=== PATIENT | male | born 1965 | race Caucasian/White ===

== ENCOUNTER 2020-01-05 13:20 | Day surgery (SDC) | payer OTHER, SELFPAY ==
[2020-01-05 13:59] VITALS: BP 163/95; PULSE 74; RESP 16; TEMP 36.2; O2SAT 97; BMI 34.0
[2020-01-05] MEDS: SODIUM CHLORIDE 0.9% 1,000 ML 200 ML IV (14:03)
--- NOTE | 2020-01-05 14:56 | PM.HP.1 ---
History of Present Illness History of Present Illness Chief complaint: [id number] Patient History Family & Social History Social History: household members spouse Tobacco & Substance use: Smoking Status Never smoker alcohol intake current alcohol intake frequency a few times a week Substance Use Type does not use Meds Home Medications and Allergies Home Medications Medication Instructions Recorded Confirmed Type acetaminophen-codeine 1 tab PO Q4-6H PRN 01/05/20 01/05/20 History [Tylenol-Codeine #3] aspirin 81 mg PO DAILY 01/05/20 01/05/20 History fluticasone propion-salmeterol 1 inh INHALATION BID 01/05/20 01/05/20 History [Advair Diskus] gabapentin [Neurontin] 100 mg PO DAILY 01/05/20 01/05/20 History metoprolol tartrate 25 mg PO DAILY 01/05/20 01/05/20 History simvastatin 5 mg PO BEDTIME 01/05/20 01/05/20 History triamterene-hydrochlorothiazid 1 tab PO DAILY 01/05/20 01/05/20 History Allergies Allergy/AdvReac Type Severity Reaction Status Date / Time lidocaine AdvReac Verified 01/05/20 13:54 Review of Systems Review of Systems ROS: Yes All systems reviewed with the patient and are negative except as otherwise documented Exam Vital Signs (past 8 hours): - 01/05/20 13:59 Temperature 97.1 F L Pulse Rate 74 Respiratory Rate 16 Blood Pressure 163/95 H Pulse Oximetry 97 Oxygen Delivery Method Room Air Narrative Exam Narrative: Awake alert and oriented x3, pupils equal round reactive to light, oropharynx clear, lungs clear to auscultation bilaterally, heart regular rate and rhythm, abdomen nondistended, no lower extremity edema Assessment & Plan Assessment & Plan narrative: Colon cancer screening for colonoscopy
--- NOTE | 2020-01-05 14:57 | PM.OP.ENDO ---
Operative Date/Time/Diagnoses Date of procedure: 01/05/20 Procedure & Clinicians Study performed: Colonoscopy Monitored anesthesia care was administered by an anesthesiologist. The following parameters were monitored: Oxygen saturation, heart rate, blood pressure, and response to care. Indications: Colon cancer screening. Last colonoscopy was done 8-10 years ago Procedure Notes Procedure in detail: Prior to the procedure, history and physical was performed, and patient medications and allergies were reviewed. Preprocedure nursing history and assessment was reviewed. Patient identification and proposed procedure were verified by the physician and nurse in the procedure room. The physical status of the patient was reassessed after the procedure. After informed consent was obtained including risks, benefits, and alternatives, the scope was passed under direct vision. Throughout the procedure, the patient's blood pressure, pulse, and oxygen saturations were monitored continuously. The colonoscope was introduced through the anus and advanced to the cecum as identified by the appendiceal orifice and ileocecal valve. The patient tolerated the procedure well. Bowel prep was deemed adequate to detect polyps greater than 5 mm. Perianal examination notable for external hemorrhoids. Digital rectal examination unremarkable. Retroflexion in the rectum revealed large grade 2 internal hemorrhoids. Scattered medium mouthed diverticula noted in the sigmoid colon. There was significant looping in the sigmoid colon. The examination was otherwise unremarkable Impression: Internal and external hemorrhoids Sigmoid colon diverticulosis No specimens taken Complications: other (No EBL. No complications) Post-procedure Plan for aftercare: Repeat colonoscopy in 10 years for screening purposes Resume home medications High fiber diet Patient has a contact number available for emergencies. The signs and symptoms of potential delayed complications were discussed with the patient. Return to normal activities tomorrow. Written discharge instructions were provided to the patient. Discharge home with escort
[2020-01-05 15:01] VITALS: BP 139/83; PULSE 82; RESP 16; TEMP 36.6; O2SAT 94
[2020-01-05 15:06] VITALS: BP 139/84; PULSE 80; RESP 11; O2SAT 97
[2020-01-05 15:11] VITALS: BP 138/90; PULSE 68; RESP 17; O2SAT 98
[2020-01-05 15:29] VITALS: BP 147/89; PULSE 66; RESP 11; TEMP 36.1; O2SAT 98
[2020-01-05 15:46] VITALS: BP 144/83; PULSE 73; RESP 15; TEMP 36.2; O2SAT 96
== END 2020-01-05 15:56 | disposition home or self-care (01) ==
LOC: ENDO 13:27
PROVIDERS: PCP Family Medicine; Referring Provider Internal Medicine; Visit Provider Internal Medicine
PROC: 0DJD8ZZ Inspection of Lower Intestinal Tract, Via Natural or Artificial Opening Endoscopic (ICD-10-PCS; CPT 45378; principal; 2020-01-05 15:00)
DX: Z12.11 Encounter for screening for malignant neoplasm of colon (principal); K57.30 Diverticulosis of large intestine without perforation or abscess without bleeding; K64.1 Second degree hemorrhoids; K64.4 Residual hemorrhoidal skin tags
CPT/HCPCS: 45378; J2250; J2704

== ENCOUNTER → 2024-05-05 15:14 | Outpatient (CLI) | payer OTHER, SELFPAY ==
--- NOTE | 2024-05-05 | DI.MRI.S_ITS ---
PROCEDURE: MR KNEE LT WO CON INDICATIONS: Pain in left knee TECHNIQUE: Noncontrast sagittal PD fast spin echo and T2 fast spin echo with fat saturation, sagittal 3-D FLASH with fat saturation; coronal T1 spin echo and PD fast spin echo with fat saturation, and axial PD fast spin echo with fat saturation through the knee. COMPARISON: None. FINDINGS: Image quality: Excellent. Anterior cruciate ligament: Mild mucoid degeneration of the anterior cruciate ligament. Posterior cruciate ligament: Intact. Medial collateral ligament: Intact. Lateral collateral ligament: Intact. Medial meniscus: Mild intrasubstance signal in the medial meniscus is consistent with intrasubstance degeneration. Lateral meniscus: Mild intrasubstance degeneration. Medial and lateral tendons: The semimembranosus tendon insertions appear intact. Visualized portions of the pes anserinus tendons appear normal. The popliteus tendon is intact. Iliotibial band appears normal. Anterior structures: The quadriceps and patellar tendons appear intact. No patellar subluxation. No femoral trochlear dysplasia or ventral trochlear prominence. No edema in the infrapatellar fat pad. Bones and cartilage: No bone marrow contusions or fractures. Medial femorotibial cartilage: Mild partial thickness cartilage thinning in the weight-bearing portion of the medial compartment without a focal defect. Lateral femorotibial cartilage: No focal cartilage defect. Patellofemoral cartilage: Small focus of full-thickness cartilage loss is seen at the inferior aspect of the medial femoral trochlea measuring 4 x 5 mm with mild subchondral cystic changes and subchondral osteophyte formation. Soft tissues: There is physiologic knee joint fluid. Trace medial popliteal cyst. The musculature surrounding the knee is normal in bulk. IMPRESSION: 1. Small focal full-thickness cartilage defect at the inferior medial femoral trochlea measuring 4 x 5 mm with subchondral osteophyte formation. Mild grade 2 cartilage thinning in the weight-bearing portion of the medial compartment. 2. Mild intrasubstance degeneration in the medial and lateral menisci without a discrete meniscal tear. 3. Mild mucoid degeneration of the anterior cruciate ligament. No cruciate or collateral ligament tearing is seen. Approved by: Ronni Horvath M.D. on 05/06/2024 at 10:38
== END ==
PROVIDERS: PCP Family Medicine; Referring Provider Physician Assistant; Visit Provider Physician Assistant
DX: M25.562 Pain in left knee (principal)
CPT/HCPCS: 73721